=== PATIENT | female | born 1955 | race Caucasian/White ===

== ENCOUNTER 2017-08-13 12:07 | Day surgery (SDC) | payer BC ==
[2017-08-13] MEDS ORDERED: FENTAnyl 50 MCG/ML VIAL (14:49)
[2017-08-13] MEDS ORDERED: MIDAZOLAM 1 MG/ML 2 ML INJ ×2 (14:49)
== END 2017-08-13 15:06 | disposition home or self-care (01) ==
LOC: GIL 12:07
DX: Z12.11 Encounter for screening for malignant neoplasm of colon (principal); K64.0 First degree hemorrhoids; Z80.0 Family history of malignant neoplasm of digestive organs; E78.5 Hyperlipidemia, unspecified
CPT/HCPCS: 45378